=== PATIENT | male | born 1980 | race Caucasian/White ===

== ENCOUNTER 2017-12-10 21:09 | Emergency (ER) | payer SELFPAY ==
[~2017-12-10] VITALS: Ht 195.6 cm; Wt 150.0 kg
[2017-12-10 22:10] VITALS: BP 122/73; PULSE 90; RESP 16; O2SAT 97
--- NOTE | 2017-12-10 22:40 | PD ---
HPI Chief Complaint: Laceration/Skin Injury Time Seen by Provider: 22:25 Travel History International Travel<30 days: No Contact w/Intl Traveler<30days: No Traveled to known affect area: No History of Present Illness HPI Patient is a 37-year-old male presenting to the emergency department for evaluation of a laceration to his head. Patient states that he was "messing around" with his friends when he fell backwards hitting his head on the wall. He states he did not black out, his friends state he did. He has a dull headache currently he reports his pain is a 3 out of 10, diffuse. Symptom onset was sudden, symptoms are moderate in nature. His tetanus vaccine was 5-8 years ago. He denies any significant past medical history. He denies any neck pain, nausea, vomiting, visual changes, chest pain or shortness of breath. PFSH Past Medical History Medical History: Denies Significant Hx Diminished Hearing: No Tetanus Vaccination: < 5 Years Past Surgical History Surgical History: No Previous Surgery Social History Alcohol Use: Yes (OCCASIONALLY ) Tobacco Use: No Substance Use: Yes (MARIJANA OCCASIONALLY ) Allergies-Medications (Allergen,Severity, Reaction): Coded Allergies: Penicillins (Verified Allergy, Intermediate, 12/10/17) Review of Systems Except as stated in HPI: all other systems reviewed are Neg HENT: Positive: Headaches Skin: Positive Other (Head laceration) Physical Exam Narrative GENERAL: Overweight, well-developed, alert male. Presenting in no acute distress. SKIN: Warm and dry. 8 cm laceration to the right occipital area of the scalp. HEAD: Atraumatic. Normocephalic. EYES: Pupils equal and round. No scleral icterus. No injection or drainage. ENT: No nasal bleeding or discharge. Mucous membranes pink and moist. NECK: Trachea midline. No JVD. CARDIOVASCULAR: Regular rate and rhythm. RESPIRATORY: No accessory muscle use. Clear to auscultation. Breath sounds equal bilaterally. GASTROINTESTINAL: Abdomen soft, non-tender, nondistended. Hepatic and splenic margins not palpable. MUSCULOSKELETAL: Extremities without clubbing, cyanosis, or edema. No obvious deformities. NEUROLOGICAL: Awake and alert. No obvious cranial nerve deficits. Motor grossly within normal limits. Five out of 5 muscle strength in the arms and legs. Normal speech. PSYCHIATRIC: Appropriate mood and affect; insight and judgment normal. Data Data Last Documented VS Vital Signs Date Time Temp Pulse Resp B/P (MAP) Pulse Ox O2 Delivery O2 Flow Rate FiO2 12/10/17 22:10 90 16 122/73 (89) [address] Brain W/O Iv Contrast(Rout) (12/10/17 ) Oxycodone-Acetamin 5-325 Mg (Percocet (12/10/17 23:00) Tetanus/Diphtheria Tox Adult (Tetanus/Di (12/10/17 23:00) MDM Medical Decision Making Medical Screen Exam Complete: Yes Emergency Medical Condition: Yes Interpretation(s) Vital Signs Date Time Temp Pulse Resp B/P (MAP) Pulse Ox O2 Delivery O2 Flow Rate FiO2 12/10/17 22:10 90 16 122/73 (89) 97 Differential Diagnosis Laceration versus contusion versus hemorrhage versus concussion versus other Narrative Course Patient is a 37-year-old male presenting for evaluation of a laceration to his head that he sustained approximately 2 hours prior to arrival. Patient is neurologically intact, he complains of a dull headache. There is questionable loss of consciousness the patient has been drinking alcohol all day. At this point a CT scan the brain will be obtained to rule out acute abnormality. Please see procedure report for laceration repair. CT the brain shows no acute abnormality. Patient was advised to keep lyndsay clean and dry, they will need to be removed in 7-10 days. He was advised to avoid excessive intake of alcohol. He was given strict return precautions. Patient verbalized understanding of instructions. Patient stable for discharge. Procedures Procedure Narrative LACERATION LOCATION: Right scalp LENGTH: 8 cm NUMBER OF STITCHES/LYNDSAY: 13 lyndsay REPAIR: The area of the laceration was prepped with Betadine and sterilely draped. The laceration was infiltrated with 1% lidocaine. The wound was copiously irrigated and explored without evidence of foreign body, tendon injury or neurovascular injury. The wound was closed using lyndsay. This was a 1 layer repair. A sterile dressing was applied. The patient was advised to keep the dressing clean and dry. Patient tolerated the procedure well. Diagnosis Primary Impression: Scalp laceration Qualified Codes: S01.01XA - Laceration without foreign body of scalp, initial encounter Additional Impression: Head injury Qualified Codes: S09.90XA - Unspecified injury of head, initial encounter Referrals: Primary Care Physician 1 week Patient Instructions: General Instructions, Head Injury (ED), Laceration (ED), Staple Care (DC) Additional Instructions: Keep lyndsay clean and dry, do not submerge head and water, do not swim in a pool or ocean Stitches will need to be removed in 1 week, you can go to a local emergency department or follow-up with your primary doctor Return to emergency department for any new or worsening symptoms Take [id number] ibuprofen or acetaminophen as needed and as directed for pain Med/Other Pt SpecificInfo: No Meds Exist/No RX given Disposition: 01 DISCHARGE HOME Condition: Stable Addie Amaya Dec 10, 2017 22:40
[2017-12-10] MEDS ORDERED: TETANUS/DIPHTHERIA TOXOID ADULT 0.5 ML VIAL IM ONE (23:00)
[2017-12-10] MEDS ORDERED: oxyCODONE/ACETAMINOPHEN 5 MG/325 MG TAB PO ONE (23:00)
--- NOTE | 2017-12-10 23:10 | RADRPT ---
EXAM DATE/TIME: 12/10/2017 22:57 [facility] COMPARISON: No previous studies available for comparison. INDICATIONS : Fall. Laceration. RADIATION DOSE: 43.72 CTDIvol (mGy) MEDICAL HISTORY : None SURGICAL HISTORY : None. ENCOUNTER: Initial ACUITY: 1 day PAIN SCALE: 0/10 LOCATION: cranial TECHNIQUE: Multiple contiguous axial images were obtained of the head. Using automated exposure control and adj ustment of the mA and/or kV according to patient size, radiation dose was kept as low as reasonably a chievable to obtain optimal diagnostic quality images. DICOM format image data is available electro nically for review and comparison. FINDINGS: CEREBRUM: The ventricles are normal for age. No evidence of midline shift, mass lesion, hemorrhage or acute in farction. No extra-axial fluid collections are seen. POSTERIOR FOSSA: The cerebellum and brainstem are intact. The 4th ventricle is midline. The cerebellopontine angle i s unremarkable. EXTRACRANIAL: The visualized portion of the orbits is intact. SKULL: The calvaria is intact. No evidence of skull fracture. Right parietal scalp laceration and cutaneous lyndsay. CONCLUSION: No acute intracranial findings. Simone Stephenson MD on December 10, 2017 at 23:06 Board Certified Radiologist. This report was verified electronically.
== END 2017-12-10 23:28 | disposition home or self-care (01) ==
LOC: NEPD 21:09
DX: S01.01XA Laceration without foreign body of scalp, initial encounter (principal); W01.198A Fall on same level from slipping, tripping and stumbling with subsequent striking against other object, initial encounter; Y93.83 Activity, rough housing and horseplay; F12.90 Cannabis use, unspecified, uncomplicated; Z23 Encounter for immunization
CPT/HCPCS: 12004; 70450; 90471; 90714